=== PATIENT | female | born 1940 | race Two or more races ===

== ENCOUNTER 2020-08-25 10:34 | Inpatient (IN) | payer OTHER ==
[~2020-08-25] VITALS: Ht 160 cm; Wt 90.7 kg
[2020-08-25] MEDS ORDERED: PEPCID AC10 MG PO (10:45)
[2020-08-25] MEDS ORDERED: ACTOS15 MG PO (10:46)
[2020-08-26] MEDS ORDERED: MEMANTINE HCL10 MG (11:22)
[2020-08-26] MEDS ORDERED: DONEPEZIL HCL10 MG (11:22)
[2020-08-26] MEDS ORDERED: AZELASTINE137 MCG/0. (11:22)
[2020-08-26] MEDS ORDERED: OXYBUTYNIN CHLO10 MG (11:22)
== END 2020-09-09 16:58 | disposition home or self-care (01) | DRG 446 ==
LOC: ER 10:34 → SEC-K 21:04 → MEDI 21:04
PROVIDERS: Internal Medicine Gastroenterology; ADMIT Internal Medicine Cardiovascular Disease; ATTEND Internal Medicine Cardiovascular Disease
PROC: 02HV33Z Insertion of Infusion Device into Superior Vena Cava, Percutaneous Approach (ICD-10-PCS; 2020-08-26)
PROC: BF10YZZ Fluoroscopy of Bile Ducts using Other Contrast (ICD-10-PCS; 2020-09-06)
PROC: 0FC98ZZ Extirpation of Matter from Common Bile Duct, Via Natural or Artificial Opening Endoscopic (ICD-10-PCS; principal; 2020-09-06 07:00)
DX: K80.41 Calculus of bile duct with cholecystitis, unspecified, with obstruction (principal); G30.9 Alzheimer's disease, unspecified; F02.80 Dementia in other diseases classified elsewhere, unspecified severity, without behavioral disturbance, psychotic disturbance, mood disturbance, and anxiety; I13.10 Hypertensive heart and chronic kidney disease without heart failure, with stage 1 through stage 4 chronic kidney disease, or unspecified chronic kidney disease; N18.9 Chronic kidney disease, unspecified; Z20.828 Contact with and (suspected) exposure to other viral communicable diseases; K57.10 Diverticulosis of small intestine without perforation or abscess without bleeding